=== PATIENT | female | born 1965 | race Caucasian/White ===

== ENCOUNTER 2016-05-13 15:11 | Emergency (ER) | payer BC ==
[2016-05-13 16:38] VITALS: BP 134/73
[2016-05-13] MEDS ORDERED: Fluorescein Sodium TOPICAL* 1 MG TEST ONE (17:13)
[2016-05-13] MEDS ORDERED: Tetracaine 0.5% OPTH.SOL 4 ML* 1 DROP BTL ONE (17:14)
[2016-05-13] MEDS ORDERED: BSS OPTH.SOL* BTL ONE (17:14)
--- NOTE | 2016-05-13 17:32 | UC ---
Eye Complaint HPI - HPI Summary HPI Summary: right eye pain x 2 hrs. + foreign body jumped into right eye pain , redness, blurry vision - History of Current Complaint Chief Complaint: UCEye Stated Complaint: RIGHT EYE COMPLAINT Time Seen by Provider: 05/13/16 17:07 Hx Obtained From: Patient Onset/Duration: Sudden Onset, Lasting Hours - 2, Still Present Timing: Constant Severity Initially: Moderate Severity Currently: Moderate Location of Injury: Eye Lid (upper) - right Character: Foreign Body Sensation - right eye Aggravating Factor(s): Blinking Alleviating Factor(s): Nothing Associated Signs And Symptoms: Positive: Drainage (Clear), Vision Impairment Right. Negative: Photophobia, Drainage (Purulent) - Allergies/Home Medications Allergies/Adverse Reactions: Allergies Allergy/AdvReac Type Severity Reaction Status Date / Time No Known Allergies Allergy Verified 05/13/16 16:38 Home Medications: Home Medications Hydrocodone Bitartrate [Zohydro ER] 10 mg PO DAILY 05/13/16 [History Confirmed 05/13/16] Omeprazole [Prilosec] 20 mg PO DAILY 05/13/16 [History Confirmed 05/13/16] Valsartan/HCTZ 320/12.5(NF) [Diovan Hct 320/12.5(NF)] 1 tab PO DAILY 05/13/16 [ History Confirmed 05/13/16] PMH/Surg Hx/FS Hx/Imm Hx Cardiovascular History Of: Reports: Hypertension - Surgical History Surgical History: Yes Surgery Procedure, Year, and Place: hysterectomy - Family History Known Family History: Negative: Diabetes - Social History Alcohol Use: Occasionally Substance Use Type: None Smoking Status (MU): Never Smoked Tobacco Review of Systems Constitutional: Negative Skin: Negative Eyes: Blurred Vision, Drainage, Eye Redness ENT: Negative Respiratory: Negative Cardiovascular: Negative Gastrointestinal: Negative All Other Systems Reviewed And Are Negative: Yes Physical Exam Triage Information Reviewed: Yes Appearance: Well-Appearing, No Pain Distress, Well-Nourished Vital Signs: Initial Vital Signs Temp 98.7 F 05/13/16 16:32 Pulse 78 05/13/16 16:32 Resp 16 05/13/16 16:32 BP 134/73 05/13/16 16:32 Pulse Ox 99 05/13/16 16:32 Vital Signs Reviewed: Yes Eyes: Positive: Conjunctiva Clear, Discharge - clear discharge right eye, Other : - + small fb under right upper eyelid , was removed using a qtip ENT: Positive: Normal ENT inspection, Hearing grossly normal, Pharynx normal Neck exam: Normal Neck: Positive: Supple, Nontender, No Lymphadenopathy Respiratory Exam: Normal Respiratory: Positive: Chest non-tender, Lungs clear, Normal breath sounds Cardiovascular: Positive: RRR, No Murmur, Pulses Normal Skin Exam: Normal Eye Complaint Course/Dx - Differential Dx/Diagnosis Provider Diagnoses: fb right eye Discharge - Discharge Plan Condition: Stable Disposition: HOME Patient Education Materials: Eye Foreign Body (ED) Referrals: Radha Barba MD [Primary Care Provider] - 3 Days Additional Instructions: follow up if having eye pain, any change in your vision , any photophobia
== END 2016-05-13 17:35 | disposition home or self-care (01) ==
LOC: UCCORT 15:11
DX: T15.11XA Foreign body in conjunctival sac, right eye, initial encounter (principal); I10 Essential (primary) hypertension; X58.XXXA Exposure to other specified factors, initial encounter; Y92.9 Unspecified place or not applicable
CPT/HCPCS: 99212; A9270-GY; G0463